=== PATIENT | female | born 2000 | race Caucasian/White ===

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

== ENCOUNTER 2020-05-04 11:21 | Emergency (ER) | payer SELFPAY ==
[2020-05-04 11:43] VITALS: BP 132/82; PULSE 105
--- NOTE | 2020-05-04 11:47 | EDM.PDOC ---
ED HPI GENERAL MEDICAL PROBLEM - General Chief Complaint: General Stated Complaint: ABDOMINAL PAIN Time Seen by Provider: 05/04/20 11:47 Source of Information: Reports: Patient - History of Present Illness INITIAL COMMENTS - FREE TEXT/NARRATIVE: Abdominal pain, this morning, denies pelvic nor vaginal concerns for discomfort. Denies any vaginal nor rectal discharge. Denies fever chills nor any nausea. She had a normal bowel movement yesterday, denying any contributing factors for constipation. States typically once daily bowel movement. Denies any cramping or associated issues with gastroenteritis or constipation. Last menstrual period 10 March 2020. Has been sexually active since then. Had been receiving Depo Provera, 2 total doses, with the last being in November 2019. Had mild increase/frequency in urine but states she has been drinking more water the past week. 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 Results have yet to finalize. Denies any risks or exposures for COVID that she is aware of and has had no symptoms, test was done for pre-employment status. Onset: Today Duration: Hour(s): Location: Reports: Abdomen Quality: Reports: Ache Severity: Moderate Improves with: Reports: None Worsens with: Reports: None Context: Reports: Other Associated Symptoms: Reports: No Other Symptoms Abdomen Pain Score (Numeric/FACES): 6 - Related Data Allergies Allergy/AdvReac Type Severity Reaction Status Date / Time No Known Drug Allergies Allergy Unknown Cannot Verified 05/04/20 11:44 Remember Home Meds: Home Meds . [No Known Home Meds] 04/02/19 [History] Past Medical History - Past Health History Medical/Surgical History: Denies Medical/Surgical History HEENT History: Reports: None Cardiovascular History: Reports: None Respiratory History: Reports: None Gastrointestinal History: Reports: None Genitourinary History: Reports: None MACHINE HAND History: Reports: None Musculoskeletal History: Reports: Other (See Below) Other Musculoskeletal History: Fracture left "pinky" toe Neurological History: Reports: None Psychiatric History: Reports: ADD, ADHD Endocrine/Metabolic History: Reports: None Hematologic History: Reports: None Immunologic History: Reports: None Oncologic (Cancer) History: Reports: None Dermatologic History: Reports: None - Infectious Disease History Infectious Disease History: Reports: None - Past Surgical History Head Surgeries/Procedures: Reports: None HEENT Surgical History: Reports: None Cardiovascular Surgical History: Reports: None Respiratory Surgical History: Reports: None GI Surgical History: Reports: None Female Surgical History: Reports: None Endocrine Surgical History: Reports: None Neurological Surgical History: Reports: None Musculoskeletal Surgical History: Reports: None Oncologic Surgical History: Reports: None Dermatological Surgical History: Reports: None - Past Imaging History Past Imaging History: Reports: Xray Social & Family History - Family History Family Medical History: Noncontributory - Tobacco Use Smoking Status *Q: Never Smoker Second Hand Smoke Exposure: Yes - Caffeine Use Caffeine Use: Reports: Coffee, Soda - Recreational Drug Use Recreational Drug Use: No ED ROS GENERAL - Review of Systems Review Of Systems: Comprehensive ROS is negative, except as noted in HPI. ED EXAM, GENERAL - Physical Exam Exam: See Below Free Text/Narrative:: Alert oriented in no apparent distress. HEENT is negative discharge or deformity. PERRLA no icterus no injection. [place] moist mucous membranes Neck is soft supple no lymphadenopathy appreciated, no rigidity. Thorax is clear throughout with no wheezes, no crackles are noted. Cardiac is S1-S2 I do not appreciate any murmur. Radial pulse correlates with apical heart rate. Negative flank pain to percussion, negative spinal pain to palpation or percussion. Abdomen is soft bowel sounds are present. There is mild tenderness in the left lateral abdominal wall and pressure over the urinary bladder. There is no right upper quadrant or right lower quadrant discomfort. There is no tenderness to deep palpation pressure in the right side with no specific rebound tenderness. No noted organomegaly. Denies any history of or current periumbilical pain. She is able to move her extremities about with no discomfort, negative psoas sign, and there is no peripheral edema noted, skin is warm and dry. Course - Vital Signs Last Recorded V/S: Last Vital Signs Temp 37.2 C 05/04/20 11:37 Pulse 105 H 05/04/20 11:37 Resp 20 05/04/20 11:37 BP 132/82 05/04/20 11:37 Pulse Ox 100 05/04/20 11:37 - Orders/Labs/Meds Orders: Active Orders 24 hr Category Date Time Status CULTURE URINE [RM] Stat Lab 05/04/20 11:40 Received Labs: Laboratory Tests 08/29/20 08/29/20 08/29/20 Range/Units 11:40 11:40 12:00 WBC 7.39 (5.00-10.00) 10^3/uL RBC 4.96 (3.80-5.50) 10^6/uL Hgb 14.1 (12.0-16.0) g/dL Hct 43.2 (37.0-47.0) % MCV 87.1 (82.0-92.0) fL MCH 28.4 (27.0-31.0) pg MCHC 32.6 (32.0-36.0) g/dL RDW 13.5 (11.5-14.5) % Plt Count 400 (150-400) 10^3/uL MPV 8.8 (7.4-10.4) fL Immature Gran % (Auto) 0.3 (0.0-5.0) % Neut % (Auto) 65.8 (50.0-70.0) % Lymph % (Auto) 25.3 (20.0-40.0) % [place] % (Auto) 6.0 (2.0-8.0) % Eos % (Auto) 2.3 (1.0-3.0) % Baso % (Auto) 0.3 (0.0-1.0) % Neut # (Auto) 4.87 (2.50-7.00) 10^3/uL Lymph # (Auto) 1.87 (1.00-4.00) 10^3/uL [place] # (Auto) 0.44 (0.10-0.80) 10^3/uL Eos # (Auto) 0.17 (0.10-0.30) 10^3/uL Baso # (Auto) 0.02 (0.00-0.10) 10^3/uL Immature Gran # (Auto) 0.02 (0.00-0.50) 10^3/uL Sodium (136-145) mmol/L Potassium (3.3-5.3) mmol/L Chloride (98-115) mmol/L Carbon Dioxide (21.0-32.0) mmol/L Anion Gap (5-15) mmol/L BUN (6-25) mg/dL Creatinine (0.51-1.17) mg/dL Est Cr Clr Drug Dosing mL/min Estimated GFR (MDRD) mL/min Glucose (75 - 99) mg/dL Calcium (8.7-10.3) mg/dL Specimen Type Urincc Urine Color Light yellow (YELLOW) Urine Appearance Clear (CLEAR) Urine pH 8.5 (5.0-9.0) Ur Specific [place] 1.015 (1.005-1.030) Urine Protein Negative (NEGATIVE) mg/dL Urine Glucose (UA) Negative (NEGATIVE) mg/dL Urine Ketones Negative (NEGATIVE) mg/dL Urine Occult Blood Negative (NEGATIVE) Urine Nitrite Negative (NEGATIVE) Urine Bilirubin Negative (NEGATIVE) Urine Urobilinogen 0.2 (0.2-1.0) E.U./dL Ur Leukocyte Esterase Trace H (NEGATIVE) Urine RBC 0-5 (0-5) /HPF Urine WBC 0-5 (0-5) /HPF Ur Epithelial Cells Few /LPF Urine Bacteria Occasional (NONE TO FEW) /HPF Urine HCG, Qual Negative (NEGATIVE) 05/04/20 Range/Units 12:00 WBC (5.00-10.00) 10^3/uL RBC (3.80-5.50) 10^6/uL Hgb (12.0-16.0) g/dL Hct (37.0-47.0) % MCV (82.0-92.0) fL MCH (27.0-31.0) pg MCHC (32.0-36.0) g/dL RDW (11.5-14.5) % Plt Count (150-400) 10^3/uL MPV (7.4-10.4) fL Immature Gran % (Auto) (0.0-5.0) % Neut % (Auto) (50.0-70.0) % Lymph % (Auto) (20.0-40.0) % [place] % (Auto) (2.0-8.0) % Eos % (Auto) (1.0-3.0) % Baso % (Auto) (0.0-1.0) % Neut # (Auto) (2.50-7.00) 10^3/uL Lymph # (Auto) (1.00-4.00) 10^3/uL [place] # (Auto) (0.10-0.80) 10^3/uL Eos # (Auto) (0.10-0.30) 10^3/uL Baso # (Auto) (0.00-0.10) 10^3/uL Immature Gran # (Auto) (0.00-0.50) 10^3/uL Sodium 140 (136-145) mmol/L Potassium 4.5 (3.3-5.3) mmol/L Chloride 106 (98-115) mmol/L Carbon Dioxide 25.8 (21.0-32.0) mmol/L Anion Gap 12.7 (5-15) mmol/L BUN 8 (6-25) mg/dL Creatinine 0.67 (0.51-1.17) mg/dL Est Cr Clr Drug Dosing 126.43 mL/min Estimated GFR (MDRD) > 60 mL/min Glucose 91 (75 - 99) mg/dL Calcium 8.8 (8.7-10.3) mg/dL Specimen Type Urine Color (YELLOW) Urine Appearance (CLEAR) Urine pH (5.0-9.0) Ur Specific [place] (1.005-1.030) Urine Protein (NEGATIVE) mg/dL Urine Glucose (UA) (NEGATIVE) mg/dL Urine Ketones (NEGATIVE) mg/dL Urine Occult Blood (NEGATIVE) Urine Nitrite (NEGATIVE) Urine Bilirubin (NEGATIVE) Urine Urobilinogen (0.2-1.0) E.U./dL Ur Leukocyte Esterase (NEGATIVE) Urine RBC (0-5) /HPF Urine WBC (0-5) /HPF Ur Epithelial Cells /LPF Urine Bacteria (NONE TO FEW) /HPF Urine HCG, Qual (NEGATIVE) Meds: Medications Discontinued Medications Generic Name Dose Route Start Last Admin Trade Name Fred PRN Reason Stop Dose Admin Ketorolac Tromethamine 60 mg 05/04/20 12:35 05/04/20 12:40 Toradol IM 05/04/20 12:36 60 mg ONETIME ONE Administration - Re-Assessments/Exams Free Text/Narrative Re-Assessment/Exam: 05/04/20 12:40 Pain and symptoms seem to have nearly resolved or at least significantly improved without any intervention other than reassurance of negative and negative bacterial infectious process. 60 mg Toradol given for anti- inflammatory benefit. Discussed that this may be premenstrual symptoms as well, although no specific cramping or pelvic concern. Departure - Departure Time of Disposition: 12:46 Disposition: Home, Self-Care 01 Condition: Good Clinical Impression: Abdominal pain, Irregular menses - Discharge Information *PRESCRIPTION DRUG MONITORING PROGRAM REVIEWED*: Not Applicable *COPY OF PRESCRIPTION DRUG MONITORING REPORT IN PATIENT QUANG: Not Applicable Instructions: Menstruation, Abdominal Pain, Adult, [id number] Referrals: Flor Crenshaw MD [Primary Care Provider] - Forms: ED Department Discharge Additional Instructions: There is no evidence of any infection or causation for pain by today's assessment and or laboratory testing. You need to contact your PCP/clinic for further work-up, including discussion on contraception, as well as potential for further DATA ENTRY work-up. Your menstrual cycle, May be off of a regular cycle due to the previous Depo injection. You may take Tylenol or ibuprofen for your discomfort and contact your clinic Wednesday morning to establish an appointment. Call or return if symptoms return or worsen despite increasing your fluid intake, eating a well-balanced non-constipating diet, and the use of Tylenol and ibuprofen. Sepsis Event Note (ED) - Evaluation Sepsis Screening Result: No Definite Risk - Focused Exam Vital Signs: Vital Signs Temp Pulse Resp BP Pulse Ox 05/04/20 11:37 37.2 C 105 H 20 132/82 100 - Problem List & Annotations (1) Abdominal pain SNOMED Code(s): 80767632 Code(s): R10.9 - UNSPECIFIED ABDOMINAL PAIN Status: Acute Current Visit: Yes Qualifiers: Abdominal location: left lower quadrant Qualified Code(s): R10.32 - Left lower quadrant pain (2) Irregular menses SNOMED Code(s): 31679760 Code(s): N92.6 - IRREGULAR MENSTRUATION, UNSPECIFIED Status: Chronic Current Visit: Yes Annotation/Comment:: Last menses 10 March 2020 - Problem List Review Problem List Initiated/Reviewed/Updated: Yes - My Orders Last 24 Hours: My Active Orders 05/04/20 11:40 CULTURE URINE [RM] Stat - Assessment/Plan Last 24 Hours: My Active Orders 05/04/20 11:40 CULTURE URINE [RM] Stat Plan: There is no evidence of any infection or causation for pain by today's assessment and or laboratory testing. You need to contact your PCP/clinic for further work-up, including discussion on contraception, as well as potential for further DATA ENTRY work-up. Your menstrual cycle, May be off of a regular cycle due to the previous Depo injection. You may take Tylenol or ibuprofen for your discomfort and contact your clinic Wednesday morning to establish an appointment. Call or return if symptoms return or worsen despite increasing your fluid intake, eating a well-balanced non-constipating diet, and the use of Tylenol and ibuprofen.
[2020-05-04 12:24] LABS: ANION GAP 12.7 mmol/L (5-15); CHLORIDE,CL 106 mmol/L (98-115); SODIUM,NA 140 mmol/L (136-145)
[2020-05-04] MEDS ORDERED: Ketorolac 60 MG/2 ML SDV IM ONE (12:35)
== END 2020-05-04 12:50 | disposition home or self-care (01) ==
LOC: KA.ED 11:21
DX: N92.6 Irregular menstruation, unspecified (principal); Z77.22 Contact with and (suspected) exposure to environmental tobacco smoke (acute) (chronic)
CPT/HCPCS: 36415; 80048; 81001; 81025; 85025; 87086; 96372; 99284; J1885

== ENCOUNTER 2020-12-28 09:17 | Emergency (ER) | payer BC ==
[2020-12-28 10:08] VITALS: BP 113/66; PULSE 94
[2020-12-28 10:12] LABS: ANION GAP 16.1 mmol/L (5-15); CHLORIDE,CL 106 mmol/L (98-107); SODIUM,NA 142 mmol/L (136-145)
--- NOTE | 2020-12-28 11:13 | EDM.PDOC ---
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 She says she has to change her pad every hour and was up 3 times during the night. This is the normal time for her period but much heavier bleeding than normal and worse cramping too. She says she is definitely not . She started an OCP about two weeks ago after seeing a provider at [facility] in [place]. She says her regular provider is Dr. Branch but she hasn't seen her in over a year since she has lived in [place] for awhile in between. She smokes 1 ppd for the last 2 years. 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 Musculoskeletal History: Reports: Other (See Below) Other Musculoskeletal History: Fracture left "pinky" toe Neurological History: Reports: None Psychiatric History: Reports: ADD, ADHD Endocrine/Metabolic History: Reports: None Hematologic History: Reports: None Immunologic History: Reports: None Oncologic (Cancer) History: Reports: None Dermatologic History: Reports: None - Infectious Disease History Infectious Disease History: Reports: None - Past Surgical History Head Surgeries/Procedures: Reports: None HEENT Surgical History: Reports: None Cardiovascular Surgical History: Reports: None Respiratory Surgical History: Reports: None GI Surgical History: Reports: None Female Surgical History: Reports: None Endocrine Surgical History: Reports: None Neurological Surgical History: Reports: None Musculoskeletal Surgical History: Reports: None Oncologic Surgical History: Reports: None Dermatological Surgical History: Reports: None - Past Imaging History Past Imaging History: Reports: Xray Social & Family History - Family History Family Medical History: No Pertinent Family History - Tobacco Use Tobacco Use Status *Q: Current Every Day Tobacco User Years of Tobacco use: 2 Packs/Tins Daily: 1 - Caffeine Use Caffeine Use: Reports: Coffee, Soda - Recreational Drug Use Recreational Drug Use: No ED ROS GENERAL - Review of Systems Review Of Systems: See Below Constitutional: Denies: Fever, Chills, Malaise, Weakness HEENT: Reports: No Symptoms Respiratory: Denies: Shortness of Breath, Cough Cardiovascular: Denies: Chest Pain, Lightheadedness, Syncope GI/Abdominal: Reports: Abdominal Pain. Denies: Diarrhea, Vomiting (not since 3 days ago on the day her period started) : Denies: Dysuria, Flank Pain Musculoskeletal: Reports: No Symptoms Skin: Denies: Cyanosis, Jaundice, Mottled, Pallor, Diaphoresis Neurological: Denies: Confusion, Dizziness, Seizure, Syncope, Trouble Speaking, Difficulty Walking Psychiatric: Denies: Agitation, Anxiety, Confusion Hematologic/Lymphatic: Denies: Anemia, Easy Bleeding ED EXAM, RENAL/ - Physical Exam Exam: See Below Exam Limited By: No Limitations General Appearance: Alert, WD/WN, No Apparent Distress Eye Exam: Bilateral Eye: EOMI, Normal Inspection, PERRL Ears: Normal External Exam, Hearing Grossly Normal Nose: Normal Inspection, No Blood Throat/Mouth: Normal Inspection, Normal Lips, Normal Voice, No Airway Compromise Head: Atraumatic, Normocephalic Neck: Normal Inspection, Full Range of Motion Respiratory/Chest: No Respiratory Distress, Lungs Clear, Normal Breath Sounds Cardiovascular: Regular Rate, Rhythm, No Murmur GI/Abdominal: Normal Bowel Sounds, Soft, No Organomegaly, No Distention, Tender (mildly in low mid abdomen and LLQ). No: Distended, Guarding, Rigid, Rebound Back Exam: Normal Inspection, Full Range of Motion. No: CVA Tenderness (L), CVA Tenderness (R) Extremities: Normal Inspection, Normal Range of Motion Neurological: Alert, Oriented, Normal Cognition, No Motor/Sensory Deficits Psychiatric: Normal Affect, Normal Mood Skin Exam: Warm, Dry, Intact, Normal Color, No Rash Course - Vital Signs Last Recorded V/S: Last Vital Signs Temp 98.3 F 12/28/20 09:29 Pulse 94 12/28/20 10:07 Resp 16 12/28/20 10:07 BP 113/66 12/28/20 10:07 Pulse Ox 98 12/28/20 10:07 - Orders/Labs/Meds Labs: Laboratory Tests 12/28/20 12/28/20 Range/Units 09:48 09:48 WBC 4.86 L (5.00-10.00) 10^3/uL RBC 4.09 (3.80-5.50) 10^6/uL Hgb 12.3 D (12.0-16.0) g/dL Hct 37.1 (37.0-47.0) % MCV 90.7 D (82.0-92.0) fL MCH 30.1 (27.0-31.0) pg MCHC 33.2 (32.0-36.0) g/dL RDW 12.6 (11.5-14.5) % Plt Count 310 D (150-400) 10^3/uL MPV 9.4 (7.4-10.4) fL Immature Gran % (Auto) 0.4 (0.0-5.0) % Neut % (Auto) 62.6 (50.0-70.0) % Lymph % (Auto) 29.4 (20.0-40.0) % [place] % (Auto) 6.2 (2.0-8.0) % Eos % (Auto) 1.2 (1.0-3.0) % Baso % (Auto) 0.2 (0.0-1.0) % Neut # (Auto) 3.04 (2.50-7.00) 10^3/uL Lymph # (Auto) 1.43 (1.00-4.00) 10^3/uL [place] # (Auto) 0.30 (0.10-0.80) 10^3/uL Eos # (Auto) 0.06 L (0.10-0.30) 10^3/uL Baso # (Auto) 0.01 (0.00-0.10) 10^3/uL Immature Gran # (Auto) 0.02 (0.00-0.50) 10^3/uL Sodium 142 (136-145) mmol/L Potassium 3.9 (3.5-5.1) mmol/L Chloride 106 (98-107) mmol/L Carbon Dioxide 23.8 (21.0-32.0) mmol/L Anion Gap 16.1 H (5-15) mmol/L BUN 15 (7-18) mg/dL Creatinine 0.80 (0.51-1.17) mg/dL Est Cr Clr Drug Dosing 96.86 mL/min Estimated GFR (MDRD) > 60 mL/min Glucose 83 (70-140) mg/dL Calcium 8.4 L (8.7-10.3) mg/dL - Re-Assessments/Exams Free Text/Narrative Re-Assessment/Exam: 12/28/20 11:24 I discussed case with Dr. Lin and Nicolle Price NP who both happened to be in-house. Nicolle had prescribed the OCP for patient as well, at a clinic visit December 11. Dr. Lin recommended Ibuprofen 600-800 mg every 8 hours for 5 days, especially since she is already on an OCP just recently started. I discussed findings and treatment plan with patient and she will car pick up driver the ibuprofen on the way home and start right away. Discharged to home in stable condition. Departure - Departure Time of Disposition: 11:00 Disposition: Home, Self-Care 01 Condition: Good Clinical Impression: Heavy menstrual bleeding Qualifiers: Menorrhagia type: with regular cycle Qualified Code(s): N92.0 - Excessive and frequent menstruation with regular cycle - Discharge Information Instructions: Menorrhagia, [id number] Referrals: Flor Crenshaw MD [Primary Care Provider] - Forms: ED Department Discharge Additional Instructions: Take Ibuprofen 600-800 mg every 8 hours for 5 days. If the bleeding is controlled sooner than 5 days you can stop Ibuprofen. Follow up with your PCP in 1-2 weeks for recheck. Recheck sooner if this isn't controlled in 5 days or less. Recheck with PCP or ER [facility] if worsening significantly. Sepsis Event Note (ED) - Evaluation Sepsis Screening Result: No Definite Risk - Focused Exam Vital Signs: Vital Signs Temp Pulse Resp BP Pulse Ox 12/28/20 10:07 94 16 113/66 98 12/28/20 09:29 98.3 F 93 16 136/92 H 98
== END 2020-12-28 11:15 | disposition home or self-care (01) ==
LOC: KA.ED 09:17
DX: N92.0 Excessive and frequent menstruation with regular cycle (principal); Z72.0 Tobacco use
CPT/HCPCS: 36415; 80048; 85025; 99283; 99284

== ENCOUNTER 2022-10-01 07:20 | Emergency (ER) | payer BC ==
[2022-10-01] MEDS ORDERED: Sodium Chloride 0.9% 10 ML Syringe FLUSH PRN (07:35)
[2022-10-01] MEDS: Ondansetron 4 MG/2 ML SDV IVPUSH ONE (07:50)
[2022-10-01] MEDS: Sodium Chloride 0.9% 1,000 ML IV ONE (07:50)
[2022-10-01 08:16] LABS: ANION GAP 11.8 mmol/L (5-15); CHLORIDE,CL 104 mmol/L (98-107); ESTIMATED GFR 118 mL/min (>=60); SODIUM,NA 137 mmol/L (136-145)
[2022-10-01] MEDS: Iopamidol 755 Mg/ML 75 ML Bottle IVPUSH ONE (08:44)
[2022-10-01] MEDS: Sodium Chloride 0.9% 50 ML IV SCH (08:44)
[2022-10-01 09:06] VITALS: BP 135/85; PULSE 78
== END 2022-10-01 09:55 | disposition home or self-care (01) ==
LOC: KA.ED 07:20
DX: N39.0 Urinary tract infection, site not specified (principal); N83.202 Unspecified ovarian cyst, left side; N83.201 Unspecified ovarian cyst, right side
CPT/HCPCS: 36415; 74177; 80053; 81001; 84703; 85025; 87086; 96361; 96374; 99284; 99284-25; J2405; J7030; Q9967